=== PATIENT | male | born 1955 | race Caucasian/White ===

== ENCOUNTER 2018-06-12 12:33 | Emergency (ER) | payer MEDICAID ==
[~2018-06-12] VITALS: Ht 175.3 cm; Wt 81.6 kg
[2018-06-12] MEDS ORDERED: TRAM50TA2 PO (12:50)
[2018-06-12] MEDS ORDERED: ALPR2TAB7 PO (12:50)
--- NOTE | 2018-06-12 13:05 | NUR ---
PATIENT WAS MSE BY DR DAY IN ROOM 02B. PATIENT A & O X4
--- NOTE | 2018-06-12 13:17 | NUR ---
Patient discharged to home in stable conditon. Written and verbal after care instructions given. Patient verbalizes understanding of instructions.
[2018-06-12 13:21] VITALS: BP 135/85
== END 2018-06-12 13:23 | disposition home or self-care (01) ==
LOC: ER 12:33
DX: Z76.0 Encounter for issue of repeat prescription (principal); Z79.899 Other long term (current) drug therapy
CPT/HCPCS: 99283; A4663